=== PATIENT | male | born 1955 | race Caucasian/White ===

== ENCOUNTER 2024-03-07 11:20 | Emergency (ER) | payer MEDICARE, SELFPAY ==
--- NOTE | ~2024-03-07 | XR_ITS ---
EXAMINATION: XR chest 2V 03/07/2024 12:06 INDICATION: Low-grade fever and cough PROCEDURE: 2 view chest COMPARISON: No prior studies for comparison. FINDINGS: The lungs are clear. The cardiomediastinal silhouette is within normal limits. There are no pleural effusions. There is no pneumothorax suspected. IMPRESSION: 1: NO ACUTE CARDIOPULMONARY DISEASE. Reviewed, dictated and finalized at location B.
--- NOTE | 2024-03-07 11:35 | ED.GENADULT ---
HPI - General Adult General Chief complaint: Upper Respiratory Infection Stated complaint: congestion,cough Time Seen by Provider: 03/07/24 11:35 Source: patient Mode of arrival: ambulatory Limitations: no limitations History of Present Illness HPI narrative: 68-year-old male patient presents to the [facility] with complaints of cough and shortness of breath. Patient states he has been dealing with a virus since the 22 of February and states he was seen at [place] urgent [facility] about a week ago and was given amoxicillin for possible sinus infection, Tessalon Perles, albuterol inhaler and prednisone for his cough symptoms. Patient states he has finished the prednisone and continues to take the amoxicillin. Patient states he does not feel like his cough is getting any better and feels that his shortness of breath is getting worse. Patient states he is only using the inhaler once a day before bed. Patient states he does wear CPAP and was a former cigarette smoker quit about 12 years ago. Patient states he has had some low-grade fevers this morning woke up with a 99 fever. Related Data Home Medications Medication Instructions Recorded Confirmed ezetimibe 10 mg tablet 10 mg PO DAILY 03/07/24 03/07/24 rosuvastatin 5 mg tablet 5 mg PO DAILY 03/07/24 03/07/24 tolterodine 1 mg tablet 1 mg PO DAILY 03/07/24 03/07/24 Allergies Allergy/AdvReac Type Severity Reaction Status Date / Time No Known Allergies Allergy Verified 03/07/24 11:33 Review of Systems Review of Systems: CONSTITUTIONAL: Positive fever, denies chills, or sweats. EYES: Denies visual changes, redness, or discharge. ENT: Denies rhinorrhea, congestion, sore throat, or otalgia. CARDIOVASCULAR: Denies chest pain, palpitations, or edema. RESPIRATORY: positive productive cough with dyspnea. GASTROINTESTINAL: Denies abdominal pain, nausea, vomiting, or diarrhea. GENITOURINARY: Denies dysuria or hematuria. SKIN: Denies rash or itching. MUSCULOSKELETAL: Denies back pain, joint pain, or myalgia. NEUROLOGIC: Denies headache, numbness, or weakness. PSYCHIATRIC: Denies anxiety or depression. [facility] Past Medical History Medical History (Updated 03/07/24 @ 12:16 by GRACE Lincoln) Hypertension Sleep apnea Social History Social History (Updated 03/07/24 @ 12:02 by JM Lincoln Smoking status: Former smoker Comments At the time of my signature I agree with nursing past medical history, surgical, social, and family history. There is no relevant family history pertinent to the presenting complaint. Exam Narrative: GENERAL: Well-appearing, well-nourished, and in no acute distress. HEAD: Normocephalic, atraumatic. EYES: PERRLA and EOMI. ENT: Nares clear, no rhinorrhea or epistaxis. Mucous membranes moist. posterior pharynx with some postnasal drip present. No tonsillar enlargement, no exudates or lesions present. Bilateral TMs are clear with no erythema or foreign bodies the canal. NECK: Supple. No lymphadenopathy CHEST: Patient does have slight crackles noted to the left lower lobe on auscultation. patient does have a cough present during exam that worsens with inspiratory breathing HEART: Regular rate and rhythm. No murmur heard. Normal peripheral pulses. ABDOMEN: Soft, nontender, nondistended, normal active bowel sounds. EXTREMITIES: Normal range of motion. No edema. SKIN: Warm, dry, no rash. NEURO: No focal deficits. Alert and oriented x3. Course Course Level of Care: Express Care Visit Reevaluation(s) Reevaluation #1: re-evaluated patient notified him that his x-ray is negative for any pneumonia. Discussed with patient that most likely this is a bronchitis. I will go ahead and given him additional 5 days of steroids and I encouraged him to increase the uses of his inhaler and use every 4 hours to help with the cough. Discussed with patient that if he continues to have worsening symptoms despite this additional course of steroid
[2024-03-07 11:48] VITALS: BP 163/93; PULSE 71; RESP 16; TEMP 36.6; O2SAT 100
== END 2024-03-07 12:18 | disposition home or self-care (01) ==
PROVIDERS: Emergency Provider Nurse Practitioner Family
DX: J20.9 Acute bronchitis, unspecified (principal); I10 Essential (primary) hypertension; G47.30 Sleep apnea, unspecified; Z87.891 Personal history of nicotine dependence
CPT/HCPCS: 71046; 99203; G0463